=== PATIENT | male | born 1990 | race Caucasian/White ===

== ENCOUNTER 2020-03-04 19:30 | Emergency (ER) | payer MEDICAID ==
[2020-03-04 19:34] VITALS: BP 152/95; PULSE 82
[2020-03-04] MEDS ORDERED: Bacitracin/Neomycin/Polymyxin B Oint 0.9 GM U/D Packet ONE (20:14)
--- NOTE | 2020-03-04 20:18 | EDM.PDOC ---
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 [No Known Home Meds] 05/20/15 [History] Past Medical History - Past Health History Medical/Surgical History: Denies Medical/Surgical History Other Musculoskeletal History: fracture right elbow 2008 Psychiatric History: Reports: Depression Social & Family History - Family History Family Medical History: Noncontributory - Tobacco Use Smoking Status *Q: Current Every Day Smoker Years of Tobacco use: 10 Packs/Tins Daily: 0.5 Review of Systems - Review of Systems Review Of Systems: See Below Musculoskeletal: Reports: Other (Left hand with puncture wound) ED EXAM, GENERAL - Physical Exam Exam: See Below Exam Limited By: No Limitations Extremities: Other (Left hand with 3 mm puncture wound in mid-palm Wound inspected No obvious foreign body dressing applied) Course - Vital Signs Last Recorded V/S: Last Vital Signs Temp 98.9 F 03/04/20 19:33 Pulse 82 03/04/20 19:33 Resp 16 03/04/20 19:33 BP 152/95 H 03/04/20 19:33 Pulse Ox 99 03/04/20 19:33 Departure - Departure Time of Disposition: 20:20 Disposition: Home, Self-Care 01 Clinical Impression: Puncture wound of hand, left Qualifiers: Encounter type: initial encounter Foreign body presence: unspecified Qualified Code(s): S61.432A - Puncture wound without foreign body of left hand, initial encounter - Discharge Information *PRESCRIPTION DRUG MONITORING PROGRAM REVIEWED*: Not Applicable *COPY OF PRESCRIPTION DRUG MONITORING REPORT IN PATIENT CHRISTOPHER: Not Applicable Instructions: Puncture Wound, [id number], Wound Care, Adult Referrals: PCP,None [Primary Care Provider] - Additional Instructions: Keep wound clean Follow up in clinic Sepsis Event Note (ED) - Evaluation Sepsis Screening Result: No Definite Risk - Focused Exam Vital Signs: Vital Signs Temp Pulse Resp BP Pulse Ox 03/04/20 19:33 98.9 F 82 16 152/95 H 99
== END 2020-03-04 20:23 | disposition home or self-care (01) ==
LOC: LL.ED 19:30
DX: S61.432A Puncture wound without foreign body of left hand, initial encounter (principal); F17.210 Nicotine dependence, cigarettes, uncomplicated; Z88.5 Allergy status to narcotic agent; W25.XXXA Contact with sharp glass, initial encounter
CPT/HCPCS: 99282